=== PATIENT | female | born 2005 | race Caucasian/White ===

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

== ENCOUNTER → 2023-10-15 | Outpatient (CLI) | payer OTHER ==
--- NOTE | 2023-10-17 16:58 | US ---
EXAMINATION TYPE: US pelvic complete DATE OF EXAM: 10/15/2023 COMPARISON: Pelvic ultrasound 12/25/2022 CLINICAL INDICATION: Female, 17 years old with history of N91.2 AMENORRHEA, UNSPECIFIED; irregular me nses since delivery 1 year ago TECHNIQUE: Transabdominal (TA) Date of LMP: unknown EXAM MEASUREMENTS: Uterus: 10.1 x 4.3 x 6.4 cm Endometrial Stripe: 0.8 cm Right Ovary: 3.3 x 2.7 x 1.4 cm Left Ovary: 4.3 x 3.1 x 2.1 cm 1. Uterus: Anteverted wnl 2. Endometrium: appears wnl 3. Right Ovary: wnl 4. Left Ovary: follicles noted 5. Bilateral Adnexa: wnl 6. Posterior cul-de-sac: wnl Unremarkable appearance of the anteverted uterus without focal lesion identified. Endometrium appears within normal limits. Both ovaries appear within normal limits. No free fluid. IMPRESSION: Unremarkable transabdominal pelvic ultrasound.
== END | disposition home or self-care (01) ==
LOC: RADUSWWP 16:28
PROVIDERS: ATTEND Family Medicine
DX: N91.2 Amenorrhea, unspecified (principal)
CPT/HCPCS: 76856